=== PATIENT | male | born 1995 | race Caucasian/White ===

== ENCOUNTER 2017-08-01 11:02 | Emergency (ER) | payer SELFPAY ==
[2017-08-01 11:43] VITALS: RESP 20; O2SAT 98
--- NOTE | 2017-08-01 12:03 | C.PDOC ---
History Of Present Illness 22 year old male presents to the ER with a complaint of new onset left ear fullness since yesterday, states it "feels like I can't hear". Patient reports a Hx of chronic "sinus problems" and notes he is s/p recent URI. Denies trauma, ear discharge, or fever. NEW ONSET L EAR FULLNESS SINCE YEST. NO TRAUMA, PAIN "FEELS LIKE I CAN'T HEAR". NO DC. HO CHRONIC "SINUS PROBLEMS" S/P RECENT URI. NO FEVER EXAM NAD HEENT L TM +POST TM EFFUSION. TM SHINY, NO ERYTHEMA, BULGING. R TM NEG. 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 Time Seen by Provider: 08/01/17 11:45 Chief Complaint (Nursing): ENT Problem History Per: Patient History/Exam Limitations: None Onset/Duration Of Symptoms: Days Current Symptoms Are (Timing): Still Present Quality (Ear): denies: Discharge Symptoms Have Been: Continuous Past Medical History Reviewed: Historical Data, Nursing Documentation, Vital Signs Vital Signs: Last Vital Signs Temp 97.3 F L 08/01/17 12:09 Pulse 92 H 08/01/17 12:09 Resp 20 08/01/17 12:09 BP 115/73 08/01/17 12:09 Pulse Ox 98 08/01/17 12:09 - Medical History PMH: No Chronic Diseases - [facility] Procedures APPLICATION OF SPLINT (08/19/14) Family History: States: Unknown Family Hx - Social History Hx Tobacco Use: No Hx Alcohol Use: No Hx Substance Use: No - Immunization History Hx Tetanus Toxoid Vaccination: No Hx Influenza Vaccination: No Hx Pneumococcal Vaccination: No Review Of Systems Except As Marked, All Systems Reviewed And Found Negative. Constitutional: Negative for: Fever ENT: Positive for: Ear Pain. Negative for: Ear Discharge, Throat Pain Physical Exam - Physical Exam Appears: Non-toxic, No Acute Distress Skin: Normal Color, Warm, Dry Head: Atraumatic, Normacephalic Eye(s): bilateral: Normal Inspection Ear(s): Left: Other (Posterior TM effusion, TM shiny, no erythema or bulging. Canal normal.), Right: Normal Nose: Normal Oral Mucosa: Moist Throat: Normal, No Erythema, No Exudate Neck: Normal, Supple Chest: Symmetrical, No Tenderness Cardiovascular: Rhythm Regular Respiratory: Normal Breath Sounds, No Rales, No Rhonchi, No Wheezing Neurological/Psych: Oriented x3, Normal Speech ED Course And Treatment O2 Sat by Pulse Oximetry: 98 (Room air) Pulse Ox Interpretation: Normal Disposition Counseled Patient/Family Regarding: Diagnosis, Need For Followup, Rx Given - Disposition Referrals: [facility] [Outside] [facility] [place] [facility] [Outside] Sean Warner MD [Staff Provider] - Disposition: HOME/ ROUTINE Disposition Time: 12:02 Condition: GOOD Additional Instructions: TAKE ALLERGY MEDICINE LIKE CLARITIN. TAKE SUDAFED DIRECTED. FOLLOW UP WITH ENT IF PERSISTENT SYMPTOMS. Prescriptions: Amoxicillin/Clavulanate [Augmentin 500 MG-125 MG] 1 tab PO BID #28 tab Fluticasone Propionate [Flonase] 2 spr TATYANA DAILY #1 bottle Instructions: Serous Otitis Media (ED) Forms: [employer] (Upper Sorbian) - Clinical Impression Clinical Impression: Middle ear effusion - Scribe Statement The provider has reviewed the documentation as recorded by the Scribe Zack Orozco All medical record entries made by the Scribe were at my direction and personally dictated by me. I have reviewed the chart and agree that the record accurately reflects my personal performance of the history, physical exam, medical decision making, and the department course for this patient. I have also personally directed, reviewed, and agree with the discharge instructions and disposition.
[2017-08-01 12:10] VITALS: BP 115/73; PULSE 92; TEMP 97.3
== END 2017-08-01 12:20 | disposition home or self-care (01) ==
LOC: C.ER 11:02
DX: H93.8X2 Other specified disorders of left ear (principal)

== ENCOUNTER 2017-09-10 17:05 | Emergency (ER) | payer MEDICAID ==
[2017-09-10 17:51] VITALS: BP 132/80; PULSE 89; TEMP 98.7; O2SAT 97
--- NOTE | 2017-09-10 18:35 | C.PDOC ---
History Of Present Illness 22yo male, presents to ED with complaints of cough, subjective fever, rhinorrhea , bodyaches and congestion for the past 2 days. Patient states he took Mucinex and theraflu with transient relief of his symptoms. He denies any chest pain, shortness of breath, difficulty breathing or swallowing, n/v/d or abdominal pain. Time Seen by Provider: 09/10/17 17:44 Chief Complaint (Nursing): Cough, Cold, Congestion History Per: Patient History/Exam Limitations: no limitations Onset/Duration Of Symptoms: Days (2) Current Symptoms Are (Timing): Still Present Location Of Pain: Diffuse Myalgias Associated Symptoms: Fever, Sore Throat, Cough, Nasal Congestion Past Medical History Reviewed: Historical Data, Nursing Documentation, Vital Signs Vital Signs: Last Vital Signs Temp 98.7 F 09/10/17 17:48 Pulse 89 09/10/17 17:48 Resp 18 09/10/17 18:42 BP 132/80 09/10/17 17:48 Pulse Ox 97 09/10/17 20:14 - Medical History PMH: No Chronic Diseases Surgical History: No Surg Hx - [facility] Procedures APPLICATION OF SPLINT (08/19/14) Family History: States: Unknown Family Hx - Social History Hx Tobacco Use: No Hx Alcohol Use: No Hx Substance Use: No - Immunization History Hx Tetanus Toxoid Vaccination: No Hx Influenza Vaccination: No Hx Pneumococcal Vaccination: No Review Of Systems Except As Marked, All Systems Reviewed And Found Negative. Constitutional: Positive for: Fever, Malaise (bodyaches) ENT: Positive for: Nose Congestion Cardiovascular: Negative for: Chest Pain Respiratory: Positive for: Cough. Negative for: Shortness of Breath Gastrointestinal: Negative for: Abdominal Pain Physical Exam - Physical Exam Appears: Non-toxic, No Acute Distress Skin: Normal Color, Warm, Dry Head: Atraumatic, Normacephalic Eye(s): bilateral: Normal Inspection, EOMI Ear(s): Bilateral: Normal Nose: Normal Oral Mucosa: Moist Throat: Normal, No Erythema, No Exudate Neck: Normal ROM, Supple Chest: Symmetrical Cardiovascular: Rhythm Regular Respiratory: Normal Breath Sounds, No Wheezing Gastrointestinal/Abdominal: Normal Exam, Soft, No Tenderness Extremity: Normal ROM Neurological/Psych: Oriented x3, Normal Speech, Normal Cognition ED Course And Treatment O2 Sat by Pulse Oximetry: 97 (RA) Pulse Ox Interpretation: Normal Progress Note: Patient to be empirically treated for influenza. Given prescription for motrin, mucinex and tamiflu. Instructed to follow up with PCP in 2-3 days. Disposition - Disposition Disposition: HOME/ ROUTINE Disposition Time: 18:33 Condition: STABLE Additional Instructions: Follow up with your primary medical doctor or clinic in 2-5 days for further evaluation. Take medications as prescribed. Return to the emergency department at any time if symptoms persist or worsen. 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 - Scribe Statement The provider has reviewed the documentation as recorded by the Scribe (Yuridia Wu) Provider Attestation: All medical record entries made by the Scribe were at my direction and personally dictated by me. I have reviewed the chart and agree that the record accurately reflects my personal performance of the history, physical exam, medical decision making, and the department course for this patient. I have also personally directed, reviewed, and agree with the discharge instructions and disposition.
[2017-09-10 18:44] VITALS: RESP 18
== END 2017-09-10 18:43 | disposition home or self-care (01) ==
LOC: C.ER 17:05
DX: J11.1 Influenza due to unidentified influenza virus with other respiratory manifestations (principal)

== ENCOUNTER 2017-12-14 19:46 | Emergency (ER) | payer MEDICAID, OTHER ==
[2017-12-14 19:59] VITALS: BP 125/75; PULSE 115; RESP 16; TEMP 98; O2SAT 98
[2017-12-14] MEDS ORDERED: Tetanus/Diphtheria Toxoids 0.5 ml Syringe IM ONE ×2 (20:20→20:28)
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
== END 2017-12-14 20:32 | disposition home or self-care (01) ==
LOC: C.ER 19:46
DX: S00.81XA Abrasion of other part of head, initial encounter (principal); S40.819A Abrasion of unspecified upper arm, initial encounter; Y08.89XA Assault by other specified means, initial encounter; Y92.9 Unspecified place or not applicable; Z23 Encounter for immunization

== ENCOUNTER 2018-02-12 22:29 | Emergency (ER) | payer OTHER ==
[2018-02-12 22:37] VITALS: BP 109/68; PULSE 90; RESP 14; TEMP 98.9; O2SAT 99
--- NOTE | 2018-02-12 23:03 | C.PDOC ---
History Of Present Illness 22yo male, comes to ER for evaluation of left knee pain after he collided with another player while playing soccer prior to arrival. Patient reports minimal swelling and pain to the area. He denies any head injury, loss of consciousness , weakness, numbness and offers no other complaints. Time Seen by Provider: 02/12/18 22:45 Chief Complaint (Nursing): Lower Extremity Problem/Injury History Per: Patient History/Exam Limitations: no limitations Onset/Duration Of Symptoms: Mins Current Symptoms Are (Timing): Still Present - Knee Description Of Injury: Struck Against Object Past Medical History Reviewed: Historical Data, Nursing Documentation, Vital Signs Vital Signs: Last Vital Signs Temp 98.9 F 02/12/18 22:34 Pulse 90 02/12/18 22:34 Resp 14 02/12/18 22:34 BP 109/68 02/12/18 22:34 Pulse Ox 99 02/13/18 00:20 - Medical History PMH: No Chronic Diseases Surgical History: No Surg Hx - [facility] Procedures APPLICATION OF SPLINT (08/19/14) Family History: States: Unknown Family Hx - Social History Hx Tobacco Use: No Hx Alcohol Use: No Hx Substance Use: No - Immunization History Hx Tetanus Toxoid Vaccination: No Hx Influenza Vaccination: No Hx Pneumococcal Vaccination: No Review Of Systems Except As Marked, All Systems Reviewed And Found Negative. Musculoskeletal: Positive for: Other (pain and swelling left knee) Neurological: Negative for: Weakness, Numbness, Headache Physical Exam - Physical Exam Appears: Non-toxic, No Acute Distress Skin: Normal Color Head: Atraumatic, Normacephalic Eye(s): bilateral: Normal Inspection Extremity: No Normal ROM (+ decreased ROM left knee due to pain), Tenderness ( mild tenderness medial left knee), No Pedal Edema, No Calf Tenderness, Capillary Refill (< 2 seconds), No Deformity, Swelling (mild swelling medial left knee) Pulses: Left Dorsalis Pedis: Normal, Right Dorsalis Pedis: Normal Neurological/Psych: Oriented x3, Normal Motor, Normal Sensation Gait: Steady ED Course And Treatment O2 Sat by Pulse Oximetry: 99 (RA) Pulse Ox Interpretation: Normal Progress Note: Patient given Tylenol 650mg PO. XR left knee ordered and reviewed , patient with no fracutres or dislocations. Knee brace applied and post application neuro-vascular exam is normal. Patient is ambulatory and is stable for d/c home. Reassessment Condition: Improved Disposition Counseled Patient/Family Regarding: Diagnosis, Need For Followup, Rx Given - Disposition Referrals: Gavin Rodriguez III, MD [Staff Provider] - [facility] [place] [Outside] Disposition: HOME/ ROUTINE Disposition Time: 23:37 Condition: STABLE Additional Instructions: Please follow up with PMD / Orthopedist Leg elevation / Apply ICE Return to ER if worse Prescriptions: Ibuprofen [Motrin] 600 mg PO Q6H #20 tab Instructions: Knee Sprain (DC) Forms: [employer] (Afghan), Work Excuse - Clinical Impression Clinical Impression: Left knee sprain - 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 - Scribe Statement The provider has reviewed the documentation as recorded by the Jerrica Wu Provider Attestation: All medical record entries made by the Jerrica were at my direction and personally dictated by me. I have reviewed the chart and agree that the record accurately reflects my personal performance of the history, physical exam, medical decision making, and the department course for this patient. I have also personally directed, reviewed, and agree with the discharge instructions and disposition.
--- NOTE | 2018-02-13 08:10 | RAD ---
Date of service: 02/12/2018 PROCEDURE: Left Knee Radiographs. HISTORY: Pain. COMPARISON: None. FINDINGS: BONES: Normal. No fracture. JOINTS: Normal. No osteoarthritis. JOINT EFFUSION: None. OTHER FINDINGS: None. IMPRESSION: Normal radiographs of the left knee.
== END 2018-02-12 23:55 | disposition home or self-care (01) ==
LOC: C.ER 22:29
DX: S83.92XA Sprain of unspecified site of left knee, initial encounter (principal); W51.XXXA Accidental striking against or bumped into by another person, initial encounter; Y93.66 Activity, soccer

== ENCOUNTER 2018-05-07 20:25 | Emergency (ER) | payer OTHER ==
[2018-05-07 20:34] VITALS: BP 116/71; PULSE 94; RESP 16; TEMP 100.1; O2SAT 98
--- NOTE | 2018-05-07 20:45 | C.PDOC ---
History Of Present Illness 23 year old male presents to the ED c/o generalized body aches, malaise, chills, fever and cough since Saturday. Patient reports he took Theraflu and Aleve. Patient is also c/o urirnary frequency since this morning but have since resolved. Patient denies nausea, vomit, headache, dizziness, abdominal pain, back pain, hematuria, rash, recent travel, sick contacts. Time Seen by Provider: 05/07/18 20:35 Chief Complaint (Nursing): Flu-like Symptoms History Per: Patient History/Exam Limitations: no limitations Onset/Duration Of Symptoms: Days Current Symptoms Are (Timing): Still Present Location Of Pain: Diffuse Myalgias Sick Contacts (Context): None Associated Symptoms: Fever, Chills, Cough Recent travel outside of the [place]: No Additional History Per: Patient Past Medical History Reviewed: Historical Data, Nursing Documentation, Vital Signs Vital Signs: Last Vital Signs Temp 100.1 F H 05/07/18 20:32 Pulse 94 H 05/07/18 20:32 Resp 16 05/07/18 20:32 BP 116/71 05/07/18 20:32 Pulse Ox 98 05/07/18 20:32 - Medical History PMH: No Chronic Diseases Surgical History: No Surg Hx - [facility] Procedures APPLICATION OF SPLINT (08/19/14) Family History: States: Unknown Family Hx - Social History Hx Tobacco Use: No Hx Alcohol Use: No Hx Substance Use: No - Immunization History Hx Tetanus Toxoid Vaccination: No Hx Influenza Vaccination: No Hx Pneumococcal Vaccination: No Review Of Systems Constitutional: Positive for: Fever, Chills ENT: Negative for: Nose Discharge, Nose Congestion Cardiovascular: Negative for: Chest Pain Respiratory: Positive for: Cough. Negative for: Shortness of Breath, Sputum, Wheezing Gastrointestinal: Negative for: Nausea, Vomiting, Abdominal Pain Genitourinary: Positive for: Dysuria, Frequency. Negative for: Hematuria Musculoskeletal: Negative for: Back Pain Skin: Negative for: Rash Physical Exam - Physical Exam Appears: Non-toxic, No Acute Distress Skin: Normal Color, Warm, Dry Head: Atraumatic, Normacephalic Eye(s): bilateral: Normal Inspection Ear(s): Bilateral: Normal Nose: No Discharge Oral Mucosa: Moist Throat: Normal, No Erythema, No Exudate Neck: Normal ROM, Supple Chest: Symmetrical Cardiovascular: Rhythm Regular Respiratory: Normal Breath Sounds, No Rales, No Rhonchi, No Wheezing Gastrointestinal/Abdominal: Soft, No Tenderness, No Guarding, No Rebound Back: No CVA Tenderness Extremity: Normal ROM, No Tenderness, No Swelling Neurological/Psych: Oriented x3, Normal Speech, Normal Cognition Gait: Steady ED Course And Treatment O2 Sat by Pulse Oximetry: 98 (ON RA) Pulse Ox Interpretation: Normal Progress Note: Plan: - UA. - Motrin 600 mg PO. On reassessment, patient is resting comfortably, and is in no acute distress. Patient was instructed to follow up with physician/clinic in 1-2 days for further evaluation. Disposition Counseled Patient/Family Regarding: Diagnosis, Need For Followup, Rx Given - Disposition Referrals: Diane Momin MD [Medical Doctor] - Disposition: HOME/ ROUTINE Disposition Time: 21:46 Condition: STABLE Additional Instructions: Increase PO fluids Take medications as directed Follow up in clinic or with PMD Return to ER if worse Prescriptions: Benzonatate [Tessalon Perles] 200 mg PO TID #14 sgl Cetirizine HCl [Zyrtec] 10 mg PO DAILY #14 capsule Ibuprofen [Motrin] 600 mg PO Q6H #30 tab Instructions: Viral Upper Respiratory Infection, Adult (DC) Forms: [employer] (Ecuadorean), School Excuse - Clinical Impression Clinical Impression: Influenza-like illness - 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 - Scribe Statement The provider has reviewed the documentation as recorded by the Scribe Duane Vogel All medical record entries made by the Scribe were at my direction and personally dictated by me. I have reviewed the chart and agree that the record accurately reflects my personal performance of the history, physical exam, medical decision making, and the department course for this patient. I have also personally directed, reviewed, and agree with the discharge instructions and disposition.
[2018-05-07 21:20] LABS: URINE BILIRUBIN NEGATIVE (NEGATIVE); URINE BLOOD NEGATIVE (NEGATIVE); URINE CLARITY Clear (Clear); URINE COLOR Yellow (YELLOW); URINE GLUCOSE (UA) NORMAL (Normal); URINE LEUKOCYTE ESTERASE NEG Leu/uL (Negative); URINE PROTEIN NEGATIVE (NEGATIVE); URINE UROBILINOGEN NORMAL mg/dL (0.2-1.0)
== END 2018-05-07 21:58 | disposition home or self-care (01) ==
LOC: C.ER 20:25
DX: J11.1 Influenza due to unidentified influenza virus with other respiratory manifestations (principal)

== ENCOUNTER 2018-05-10 15:10 | Emergency (ER) | payer OTHER ==
[2018-05-10 15:36] VITALS: RESP 18; O2SAT 97
[2018-05-10] MEDS ORDERED: Sodium Chloride 0.9% 1,000 ML IV ONE (15:57)
[2018-05-10] MEDS ORDERED: Promethazine/Cod 6.25mg-10mg/5ml Syr UD PO STA (15:59)
--- NOTE | 2018-05-10 16:00 | C.PDOC ---
History Of Present Illness 23 yo male w/o significant PMHx come in for evaluation of cold sx for past 6 days associated with low grade fever, bodyaches, nasal congestion, dry cough. Pt reports, was seen here 3 days ago due to same complaints, received Rx: Tessalon, Ibuprofe, Zyrtec with worsening of bodyaches. Pt sts, " cough worsen" but still dry, non-productive. Otherwise, pt denies lethargy, headache, dizziness, visual changes, focal deficits, neck pain, CP, SOB, wheezing, palpitation, abd. pian, V/D, UTi sx. Ambulate to Ed for evaluation, not in any apparent distress. Time Seen by Provider: 05/10/18 15:51 Chief Complaint (Nursing): Flu-like Symptoms History Per: Patient Past Medical History Reviewed: Historical Data, Nursing Documentation, Vital Signs Vital Signs: Last Vital Signs Temp 100.1 F H 05/10/18 15:23 Pulse 97 H 05/10/18 15:23 Resp 18 05/10/18 15:23 BP 126/80 05/10/18 15:23 Pulse Ox 97 05/10/18 15:23 - Medical History PMH: No Chronic Diseases Denies: Anemia, Anxiety, Asthma, CAD, CHF, Diabetes, HTN Surgical History: No Surg Hx - [facility] Procedures APPLICATION OF SPLINT (08/19/14) Family History: States: Unknown Family Hx - Social History Hx Tobacco Use: No Hx Alcohol Use: No Hx Substance Use: No - Immunization History Hx Tetanus Toxoid Vaccination: No Hx Influenza Vaccination: No Hx Pneumococcal Vaccination: No Review Of Systems Except As Marked, All Systems Reviewed And Found Negative. Constitutional: Positive for: Fever, Malaise ENT: Positive for: Nose Discharge, Nose Congestion. Negative for: Ear Discharge, Throat Swelling Cardiovascular: Negative for: Chest Pain, Palpitations Respiratory: Positive for: Cough. Negative for: Shortness of Breath, Sputum, Wheezing Gastrointestinal: Negative for: Nausea, Vomiting, Abdominal Pain, Diarrhea Genitourinary: Negative for: Dysuria Skin: Negative for: Rash Neurological: Negative for: Weakness, Numbness, Headache, Dizziness Physical Exam - Physical Exam Appears: Well, Non-toxic, No Acute Distress Skin: Normal Color, Warm, Dry, No Rash Head: Normacephalic Eye(s): bilateral: PERRL Ear(s): Bilateral: Normal Nose: No Flaring, Discharge (B/L congestion with clear rhinorrhea) Oral Mucosa: Moist, No Drooling Tongue: Normal Appearing Lips: Normal Appearing Throat: No Erythema, No Drooling Neck: Supple Cardiovascular: Rhythm Regular, No Murmur, No JVD Respiratory: No Decreased Breath Sounds, No Accessory Muscle Use, No Stridor, No Wheezing Gastrointestinal/Abdominal: Soft, No Tenderness, No Distention, No Guarding, No Rebound Back: No CVA Tenderness Extremity: Normal ROM, No Deformity, No Swelling Neurological/Psych: Oriented x3, Normal Speech ED Course And Treatment - Laboratory Results Result Diagrams: 05/10/18 16:28 05/10/18 16:28 Lab Interpretation: No Acute Changes O2 Sat by Pulse Oximetry: 97 Pulse Ox Interpretation: Normal - Radiology CXR: Interpreted by Me, Viewed By Me CXR Interpretation: Yes: Infiltrates ((+)RML) Progress Note: Pt was OBS in ED for 3 hours and repotrs moderate improvemnet in sx. On re-eval, pt is AAO#3, hemodynamicaly stable. PulsEOx 97% RA, non- tachypnic, not in resp. distress. ENT: no acute findings. neck: Supple, (-) JVD, (-) carotid bruits B/L. Lungs: CTA B/L, BS equal B/L. CVS: (+)S1S2, reg, (-) murmur. Abd: benign, (-) guarding, (-) rebound. Back: (-) CVA tenderness. Neurologicaly intact. CXR(+) RML PNA. Blood work review and appears without acute abnormalitis, no acute leukocytosis or left shift noted. results review and discussed with patient and mother. Pt has clinical findings c/w RML pneumonia. Pt advised on course of ds and ref. to f/u with PMD in 1-2 days for re-eval. without fail, repeat CXR to confirm resolution of PNA. return to ED if any worsening or new changes. Pt understand and agrees with discharge. Disposition Counseled Patient/Family Regarding: Studies Performed, Diagnosis, Need For Followup, Rx Given - Disposition Referrals: Diane Momin MD [Medical Doctor] - Disposition: HOME/ ROUTINE Disposition Time: 17:48 Condition: STABLE Additional Instructions: Encourage fluids Take medication as prescribed Follow up with PMD in 2-3 days for re-evaluation without fail. return to ED if any worsening or new changes. Prescriptions: Azithromycin [Zithromax] 500 mg PO DAILY #5 tab Cefdinir [Omnicef] 300 mg PO BID #14 cap Prednisone [Deltasone] 40 mg PO DAILY #6 tablet Promethazine/Codeine [Phenergan/Codeine Oral Syrup] 10 ml PO BID #100 ml Instructions: Pneumonia, Adult (DC) Forms: [employer] (Tajik), Work Excuse - Clinical Impression Clinical Impression: Pneumonia
[2018-05-10] MEDS ORDERED: Azithromycin 500 MG in Sodium Chloride 0.9% 250 ML IVPB STA (16:14)
[2018-05-10] MEDS ORDERED: Azithromycin 500mg/250ML NS 500 MG/250 ML BAG IVPB ONE (16:28)
[2018-05-10] MEDS ORDERED: cefTRIAXone 1 gm 1 GM/100 ML BAG IVPB ONE (16:28)
[2018-05-10] MEDS ORDERED: MethylPREDNISolone 40 mg Vial ONE (16:34)
[2018-05-10 16:41] LABS: BASO % 0.6 % (0.0-2.0); EOS # 0.1 K/uL (0.0-0.7); EOS % 0.8 % (0.0-4.0); HEMOGLOBIN 15.1 g/dL (12.0-18.0); LYMPH # 1.2 K/uL (1.0-4.3); LYMPH % 17.8 % (20.0-40.0); MEAN CELL VOLUME 84.5 fL (80.0-94.0); MEAN CORPUSCULAR HEMOGLOBIN 28.8 pg (27.0-31.0); MEAN CORPUSCULAR HGB CONC 34.1 g/dL (33.0-37.0); MONO # 0.8 K/uL (0.0-0.8); MONO % 12.3 % (0.0-10.0); NEUT # 4.7 K/uL (1.8-7.0); NEUT % 68.5 % (50.0-75.0); NRBC % 0.1 % (0.0-2.0); RBC 5.24 Mil/uL (4.40-5.90); RED CELL DISTRIBUTION WIDTH 13.3 % (11.5-14.5); WHITE BLOOD COUNT 6.8 K/uL (4.8-10.8)
[2018-05-10 16:47] LABS: URINE BILIRUBIN NEGATIVE (NEGATIVE); URINE BLOOD NEGATIVE (NEGATIVE); URINE CLARITY Clear (Clear); URINE COLOR Yellow (YELLOW); URINE GLUCOSE (UA) NORMAL (Normal); URINE LEUKOCYTE ESTERASE NEG Leu/uL (Negative); URINE PROTEIN NEGATIVE (NEGATIVE); URINE UROBILINOGEN NORMAL mg/dL (0.2-1.0)
[2018-05-10 16:51] LABS: BLOOD UREA NITROGEN 11 mg/dL (9-20); GFR NON-AFRICAN AMERICAN > 60
[2018-05-10] MEDS ORDERED: Promethazine/Cod 6.25mg-10mg/5ml Syr UD ONE (16:56)
[2018-05-10 17:45] VITALS: BP 107/67; PULSE 74; TEMP 100
--- NOTE | 2018-05-10 19:05 | RAD ---
Chest x-ray two views History: Pneumonia. Comparison: None available. Findings: Dense consolidative opacification projecting over the right mid to lower lung zone concerning for infiltrate. Post treatment follow-up is recommended to ensure resolution and exclude underlying lesion. Heart size within normal limits. Impression: Dense consolidative opacification projecting over the right mid to lower lung zone concerning for infiltrate. Post treatment follow-up is recommended to ensure resolution and exclude underlying lesion.
== END 2018-05-10 18:13 | disposition home or self-care (01) ==
LOC: C.ER 15:10
DX: J18.9 Pneumonia, unspecified organism (principal)
CPT/HCPCS: 71046; 80048; 81001; 85025; 87040; 87804; 96365; 96367; 96375; 99284; J0456; J0696; J1885; J2405; J2930; J7030; J7050